=== PATIENT | female | born 1965 | race Caucasian/White ===

== ENCOUNTER → 2016-08-21 | Outpatient (REF) ==
--- NOTE | 2016-08-21 14:27 | REP ---
PARTIAL LUMBAR SPINE, THREE VIEWS: HISTORY: Degenerative disc disease. There is no acute fracture. The L3-4 through L5-S1 intervertebral discs are decreased in height consistent with disc degeneration. Osteophytes are present on L1 and L4. There is are 4 mm of grade 1 spondylolisthesis of L3 on L4. IMPRESSION: Degenerative change as described above. Signed by Allan Abrams MD 08/21/2016 02:32 P
== END ==
LOC: M SMT 11:07
PROVIDERS: ATTEND Internal Medicine
DX: M43.16 Spondylolisthesis, lumbar region (principal); M51.36 Other intervertebral disc degeneration, lumbar region; M51.37 Other intervertebral disc degeneration, lumbosacral region

== ENCOUNTER 2017-05-09 15:07 | Inpatient (IN) | payer BC, OTHER ==
[~2017-05-09 15:07] MED LIST: ACETAMINOPHEN TAB 650MG DOSE (2X325MG) PO; CYCLOBENZAPRINE 5MG TABLET PO
[2017-05-09 16:44] LABS: BEDSIDE GLUCOSE 227 MG/DL (70-105)
[2017-05-09 17:41] LABS: APPEARANCE, URINE CLEAR (CLEAR); BACTERIA, URINE AUTO NEGATIVE (NEGATIVE); BILIRUBIN, URINE AUTO NEGATIVE (NEGATIVE); BLOOD, URINE BLOOD NEGATIVE (NEGATIVE); COLOR, URINE STRAW (YELLOW); GLUCOSE, URINE (UA) AUTO 3+ mg/dL (NEGATIVE); KETONE, URINE AUTO 1+ mg/dL (NEGATIVE); LEUKOCYTE ESTERASE, URINE AUTO NEGATIVE (NEGATIVE); NITRITE, URINE AUTO NEGATIVE (NEGATIVE); PROTEIN, URINE AUTO NEGATIVE (NEGATIVE); RBC, URINE AUTO 3 /HPF (0-3); SQUAMOUS EPITHELIAL CELL UR AU 0 /HPF (0-6); UROBILINOGEN, URINE AUTO 0.2 mg/dL (0.0-2.0); WBC, URINE AUTO 1 /HPF (0-3)
[2017-05-09] MEDS: ONDANSETRON 4 MG ORAL DISINTEGRATING TAB (S0181) PO (18:22)
[2017-05-09] MEDS: metFORMIN (GLUCOPHAGE) 1000 MG TABLET PO (18:22)
[2017-05-09] MEDS: SITagliptin 50 MG TAB (JANUVIA) PO (18:23)
[2017-05-09 20:42] LABS: BEDSIDE GLUCOSE 224 MG/DL (70-105)
[2017-05-09] MEDS ORDERED: LOTRISONE CREAM 15 GM (BETAMETH/CLOTRIMAZOLE) TOP (21:00)
[2017-05-09] MEDS: MONTELUKAST 10 MG TAB PO (21:26)
[2017-05-09] MEDS: AZELASTINE 137MCG NASAL SPY 30 ML (ASTELIN) (21:26)
[2017-05-09] MEDS: FLUTICASONE PROP 0.05% NASAL SPRAY 16 GM (FLONASE) (21:26)
[2017-05-10 06:48] LABS: BEDSIDE GLUCOSE 186 MG/DL (70-105)
[2017-05-10 07:15] LABS: BASO % 0.6 % (0.0-1.0); EOS # 0.1 10^3/uL (0.0-0.50); EOS % 1.2 % (0.0-3.0); HEMATOCRIT 46.8 % (36.0-47.0); HEMOGLOBIN 15.9 g/dl (12.0-16.0); IMMATURE GRANULOCYTE % 0.4 % (0-3.0); LYMPH # 2.5 10^3/uL (1.5-4.5); MEAN CORPUSCULAR HEMOGLOBIN 29.4 pg (27.0-33.0); MEAN CORPUSCULAR VOLUME 86.5 fl (80.0-96.0); MONO # 0.5 10^3/uL (0.0-0.8); MONO % 6.2 % (0.0-5.0); NEUTROPHILS # 4.1 10^3/uL (1.8-7.7); NEUTROPHILS % 56.6 % (36.0-66.0); PLATELET COUNT, AUTOMATED 281 10^3/uL (150-450); RED BLOOD COUNT 5.41 10^6/uL (4.00-5.40); RED CELL DISTRIBUTION WIDTH 13.2 % (11.5-14.5); WHITE BLOOD COUNT 7.2 10^3/uL (4.0-10.0)
[2017-05-10 07:35] LABS: ALBUMIN 3.9 GM/DL (3.2-5.2); ALBUMIN/GLOBULIN RATIO 1.03 (1.00-1.93); ALKALINE PHOSPHATASE 102 U/L (45-117); ALT/SGPT 27 U/L (12-78); ANION GAP 8 MEQ/L (8-16); AST/SGOT 16 U/L (7-37); BILIRUBIN,TOTAL 0.6 MG/DL (0.2-1.0); BLOOD UREA NITROGEN 16 MG/DL (7-18); CALCIUM LEVEL 9.1 MG/DL (8.5-10.1); CARBON DIOXIDE LEVEL 26 MEQ/L (21-32); CHLORIDE LEVEL 102 MEQ/L (98-107); CREATININE FOR GFR 0.68 MG/DL (0.55-1.30); GLOMERULAR FILTRATION RATE > 60.0 (>51); GLUCOSE, FASTING 218 MG/DL (70-100); POTASSIUM SERUM 4.4 MEQ/L (3.5-5.1); SODIUM LEVEL 136 MEQ/L (136-145); TOTAL PROTEIN 7.7 GM/DL (6.4-8.2)
[2017-05-10] MEDS: OMEPRAZOLE 20 MG CAP PO (08:33)
[2017-05-10] MEDS: PARoxetine 25 MG CR TAB (PAXIL CR) PO (08:33)
[2017-05-10] MEDS: ASPIRIN ENTERIC 325 MG TAB PO (08:33)
[2017-05-10] MEDS: SITagliptin 50 MG TAB (JANUVIA) PO ×2 (08:33→17:19)
[2017-05-10] MEDS: CLOPIDOGREL 75 MG TAB PO (08:33)
[2017-05-10] MEDS: metFORMIN (GLUCOPHAGE) 1000 MG TABLET PO ×2 (08:33→17:19)
[2017-05-10] MEDS: FLUTICASONE PROP 0.05% NASAL SPRAY 16 GM (FLONASE) ×2 (08:34→21:01)
[2017-05-10] MEDS: AZELASTINE 137MCG NASAL SPY 30 ML (ASTELIN) ×2 (08:34→21:01)
[2017-05-10] MEDS: LOTRISONE CREAM 15 GM (BETAMETH/CLOTRIMAZOLE) TOP (08:36)
[2017-05-10 11:38] LABS: BEDSIDE GLUCOSE 212 MG/DL (70-105)
[2017-05-10 16:39] LABS: BEDSIDE GLUCOSE 240 MG/DL (70-105)
[2017-05-10 20:03] LABS: BEDSIDE GLUCOSE 250 MG/DL (70-105)
[2017-05-10] MEDS ORDERED: TAMSULOSIN 0.4 MG CAP PO (21:00)
[2017-05-10] MEDS: MONTELUKAST 10 MG TAB PO (21:01)
[2017-05-11 07:01] LABS: BEDSIDE GLUCOSE 186 MG/DL (70-105)
[2017-05-11] MEDS: INVOKANA 300 MG PO (07:32)
[2017-05-11] MEDS: SITagliptin 50 MG TAB (JANUVIA) PO ×2 (07:33→17:29)
[2017-05-11] MEDS: metFORMIN (GLUCOPHAGE) 1000 MG TABLET PO ×2 (07:33→17:29)
[2017-05-11] MEDS: traMADol 50 MG TAB PO (07:38)
[2017-05-11] MEDS: PARoxetine 25 MG CR TAB (PAXIL CR) PO (08:49)
[2017-05-11] MEDS: OMEPRAZOLE 20 MG CAP PO (08:50)
[2017-05-11] MEDS: ASPIRIN ENTERIC 325 MG TAB PO (08:50)
[2017-05-11] MEDS: CLOPIDOGREL 75 MG TAB PO (08:50)
[2017-05-11] MEDS: FLUTICASONE PROP 0.05% NASAL SPRAY 16 GM (FLONASE) ×2 (08:51→21:22)
[2017-05-11] MEDS: AZELASTINE 137MCG NASAL SPY 30 ML (ASTELIN) ×2 (08:51→21:22)
[2017-05-11 11:35] LABS: BEDSIDE GLUCOSE 175 MG/DL (70-105)
[2017-05-11] MEDS: MIRALAX *UNIT DOSE* 17GM PACKET PO (14:39)
[2017-05-11 16:47] LABS: BEDSIDE GLUCOSE 195 MG/DL (70-105)
[2017-05-11] MEDS: MONTELUKAST 10 MG TAB PO (21:00)
[2017-05-11 21:26] LABS: BEDSIDE GLUCOSE 241 MG/DL (70-105)
[2017-05-12 06:56] LABS: BEDSIDE GLUCOSE 184 MG/DL (70-105)
[2017-05-12] MEDS: SITagliptin 50 MG TAB (JANUVIA) PO ×2 (07:56→17:36)
[2017-05-12] MEDS: metFORMIN (GLUCOPHAGE) 1000 MG TABLET PO ×2 (07:56→17:36)
[2017-05-12] MEDS: INVOKANA 300 MG PO (07:57)
[2017-05-12] MEDS: OMEPRAZOLE 20 MG CAP PO (08:16)
[2017-05-12] MEDS: traMADol 50 MG TAB PO ×2 (08:17→21:14)
[2017-05-12] MEDS: ASPIRIN ENTERIC 325 MG TAB PO (08:18)
[2017-05-12] MEDS: FLUTICASONE PROP 0.05% NASAL SPRAY 16 GM (FLONASE) ×2 (08:18→21:13)
[2017-05-12] MEDS: CLOPIDOGREL 75 MG TAB PO (08:18)
[2017-05-12] MEDS: PARoxetine 25 MG CR TAB (PAXIL CR) PO (08:18)
[2017-05-12] MEDS: AZELASTINE 137MCG NASAL SPY 30 ML (ASTELIN) ×2 (08:18→21:12)
[2017-05-12 11:37] LABS: BEDSIDE GLUCOSE 220 MG/DL (70-105)
[2017-05-12 16:43] LABS: BEDSIDE GLUCOSE 212 MG/DL (70-105)
[2017-05-12 20:28] LABS: BEDSIDE GLUCOSE 221 MG/DL (70-105)
[2017-05-12] MEDS: MONTELUKAST 10 MG TAB PO (21:13)
[2017-05-13] MEDS: traMADol 50 MG TAB PO (05:54)
[2017-05-13 06:06] LABS: BEDSIDE GLUCOSE 202 MG/DL (70-105)
[2017-05-13] MEDS: SITagliptin 50 MG TAB (JANUVIA) PO ×2 (08:39→17:05)
[2017-05-13] MEDS: ASPIRIN ENTERIC 325 MG TAB PO (08:39)
[2017-05-13] MEDS: CLOPIDOGREL 75 MG TAB PO (08:39)
[2017-05-13] MEDS: metFORMIN (GLUCOPHAGE) 1000 MG TABLET PO ×2 (08:39→17:05)
[2017-05-13] MEDS: PARoxetine 25 MG CR TAB (PAXIL CR) PO (08:39)
[2017-05-13] MEDS: INVOKANA 300 MG PO (08:39)
[2017-05-13] MEDS: FLUTICASONE PROP 0.05% NASAL SPRAY 16 GM (FLONASE) ×2 (08:40→21:07)
[2017-05-13] MEDS: AZELASTINE 137MCG NASAL SPY 30 ML (ASTELIN) ×2 (08:40→21:06)
[2017-05-13] MEDS: OMEPRAZOLE 20 MG CAP PO (08:40)
[2017-05-13 14:22] LABS: BEDSIDE GLUCOSE 189 MG/DL (70-105)
[2017-05-13 16:30] LABS: BEDSIDE GLUCOSE 250 MG/DL (70-105)
[2017-05-13] MEDS: MONTELUKAST 10 MG TAB PO (21:06)
[2017-05-13 21:32] LABS: BEDSIDE GLUCOSE 169 MG/DL (70-105)
[2017-05-14 06:46] LABS: BEDSIDE GLUCOSE 162 MG/DL (70-105)
[2017-05-14] MEDS: metFORMIN (GLUCOPHAGE) 1000 MG TABLET PO ×2 (08:35→17:12)
[2017-05-14] MEDS: SITagliptin 50 MG TAB (JANUVIA) PO ×2 (08:35→17:12)
[2017-05-14] MEDS: INVOKANA 300 MG PO (08:35)
[2017-05-14] MEDS: ASPIRIN ENTERIC 325 MG TAB PO (08:36)
[2017-05-14] MEDS: PARoxetine 25 MG CR TAB (PAXIL CR) PO (08:36)
[2017-05-14] MEDS: CLOPIDOGREL 75 MG TAB PO (08:36)
[2017-05-14] MEDS: FLUTICASONE PROP 0.05% NASAL SPRAY 16 GM (FLONASE) ×2 (08:36→21:28)
[2017-05-14] MEDS: OMEPRAZOLE 20 MG CAP PO (08:36)
[2017-05-14] MEDS: AZELASTINE 137MCG NASAL SPY 30 ML (ASTELIN) ×2 (08:37→21:28)
[2017-05-14] MEDS: traMADol 50 MG TAB PO ×2 (08:38→17:12)
[2017-05-14 15:21] LABS: BEDSIDE GLUCOSE 224 MG/DL (70-105)
[2017-05-14 16:35] LABS: BEDSIDE GLUCOSE 155 MG/DL (70-105)
[2017-05-14] MEDS: MONTELUKAST 10 MG TAB PO (21:28)
[2017-05-15 03:54] LABS: BEDSIDE GLUCOSE 192 MG/DL (70-105)
[2017-05-15 05:53] LABS: BEDSIDE GLUCOSE 168 MG/DL (70-105)
[2017-05-15] MEDS: INVOKANA 300 MG PO (07:41)
[2017-05-15] MEDS: CLOPIDOGREL 75 MG TAB PO (07:41)
[2017-05-15] MEDS: ASPIRIN ENTERIC 325 MG TAB PO (07:41)
[2017-05-15] MEDS: SITagliptin 50 MG TAB (JANUVIA) PO (07:41)
[2017-05-15] MEDS: OMEPRAZOLE 20 MG CAP PO (07:41)
[2017-05-15] MEDS: metFORMIN (GLUCOPHAGE) 1000 MG TABLET PO (07:41)
[2017-05-15] MEDS: PARoxetine 25 MG CR TAB (PAXIL CR) PO (07:41)
[2017-05-15] MEDS: AZELASTINE 137MCG NASAL SPY 30 ML (ASTELIN) (07:42)
[2017-05-15] MEDS: FLUTICASONE PROP 0.05% NASAL SPRAY 16 GM (FLONASE) (07:42)
== END 2017-05-15 11:25 | disposition home health service (06) | DRG 58 ==
LOC: M PM&R 15:07
PROVIDERS: Physical Medicine & Rehabilitation
DX: I69.351 Hemiplegia and hemiparesis following cerebral infarction affecting right dominant side (principal); I10 Essential (primary) hypertension; I69.393 Ataxia following cerebral infarction; E11.9 Type 2 diabetes mellitus without complications; M54.5 Low back pain; E78.5 Hyperlipidemia, unspecified; E66.9 Obesity, unspecified; Z88.0 Allergy status to penicillin; H35.30 Unspecified macular degeneration; M79.7 Fibromyalgia; F41.9 Anxiety disorder, unspecified; F32.9 Major depressive disorder, single episode, unspecified; K21.9 Gastro-esophageal reflux disease without esophagitis; F17.200 Nicotine dependence, unspecified, uncomplicated; J31.0 Chronic rhinitis; Z79.82 Long term (current) use of aspirin; Z79.899 Other long term (current) drug therapy